=== PATIENT | female | born 1970 | race Two or more races ===

== ENCOUNTER 2021-06-05 10:04 | Outpatient (REF) | payer OTHER, SELFPAY ==
[2021-06-05 10:30] LABS: MANUAL DIFF FLAG NO
[2021-06-05 10:42] LABS: Basophils Percent Auto 0.2 % (0-2); Eosinophils Absolute Auto 0.1 X10*3/uL (0.0-0.4); Eosinophils Percent Auto 0.5 % (0-4); Hematocrit 42.8 % (37.0-47.0); Hemoglobin 13.2 g/dl (12.0-16.0); Imm Gran Abs Auto 0.04 X10*3/uL (0.00-0.03); Imm Gran Pct Auto 0.4 % (0.0-0.4); Lymphocytes Absolute Auto 4.8 X10*3/uL (1.2-4.9); Lymphocytes Percent Auto 46.5 % (20-40); Mean Corpuscular HGB Conc 30.8 g/dl (31.0-35.0); Mean Corpuscular Volume 84.3 fL (80.0-98.0); Mean Platelet Volume 10.4 fL (9.4-12.3); Monocytes Absolute Auto 0.6 X10*3/uL (0.1-1.2); Monocytes Percent Auto 5.5 % (2-11); Neutrophils Absolute Auto 4.8 x10*3/uL (2.0-8.3); Neutrophils Percent Auto 46.9 % (45-73); Platelet Count 248 X10*3/uL (160-400); Red Blood Count 5.08 X10*6/uL (4.20-5.50); Red Cell Distribution Width 15.9 % (11.0-16.0); White Blood Count 10.2 X10*3/uL (4.8-10.8)
[2021-06-05 11:06] LABS: Estimated Average Glucose 186 mg/dL; Hemoglobin A1c % 8.1 %
[2021-06-05 11:24] LABS: Alanine Aminotransferase 37 U/L (0-31); Albumin Level 4.4 g/dL (3.5-5.0); Alkaline Phosphatase 118 U/L (39-117); Anion Gap 15 (12-20); Aspartate Amino Transferase 11 U/L (5-31); Bilirubin Total 0.4 mg/dL (0.0-1.0); Blood Urea Nitrogen 23 mg/dL (9-16); Calcium 11.2 mg/dL (8.4-10.2); Carbon Dioxide 28 mmol/L (22-29); Chloride 100 mmol/L (96-108); Estimated Glomerular Filt Rate > 60; Glucose Fasting 109 mg/dL (60-99); Potassium 4.7 mmol/L (3.3-5.1); Sodium 138 mmol/L (135-145); Total Protein 7.8 g/dL (6.5-8.0)
[2021-06-05 12:34] LABS: Creatinine Urine 156.71 mg/dL
[2021-06-05 12:49] LABS: Microalbum/Creatinine Ratio Ur 326.7 ug/mg cr
== END 2021-06-05 10:05 | disposition home or self-care (01) ==
LOC: HO.LAB 10:04
PROVIDERS: PCP Nurse Practitioner Family; Visit Provider Nurse Practitioner Family
DX: E78.00 Pure hypercholesterolemia, unspecified (principal); E11.9 Type 2 diabetes mellitus without complications; I10 Essential (primary) hypertension
CPT/HCPCS: 36415; 80053; 82043; 83036; 85025

== ENCOUNTER 2021-06-19 12:40 | Outpatient (REF) | payer OTHER, SELFPAY ==
[2021-06-19 13:47] LABS: Calcium 11.6 mg/dL (8.4-10.2); Phosphorus 2.5 mg/dL (2.7-4.5)
[2021-06-19 14:13] LABS: TSH reflex Free T4 1.02 uIU/mL (0.32-4.0)
[2021-06-24 13:12] LABS: Vitamin D 25-OH, D2 4 ng/mL; Vitamin D 25-OH, D3 13 ng/mL; Vitamin D 25-OH, Total 17 ng/mL (30-100)
[2021-06-26 16:26] LABS: Parathyroid Hormone Related Pr 13 pg/mL (11-20)
== END 2021-06-19 12:41 | disposition home or self-care (01) ==
LOC: HO.LAB 12:40
PROVIDERS: PCP Nurse Practitioner Family; Visit Provider Nurse Practitioner Family
DX: E83.52 Hypercalcemia (principal)
CPT/HCPCS: 36415; 82306; 82310; 83519; 84100; 84443

== ENCOUNTER 2022-04-03 12:55 | Outpatient (REF) | payer OTHER, SELFPAY ==
--- NOTE | ~2022-04-03 | MM_ITS ---
EXAMINATION: MM SCREENING DIGITAL BREAST TOMOSYNTHESIS, BILATERAL CLINICAL INFORMATION: Screening. Asymptomatic. The lifetime risk of breast cancer based on the Tyrer-Cuzick Model is 11%. COMPARISON: Outside mammography: 05/29/2018, 05/21/2017 ([facility]). TECHNIQUE: Digital breast tomosynthesis is performed in both the craniocaudal and mediolateral oblique views along with computer-aided detection (CAD). Synthesized 2D images are generated from the tomosynthesis. FINDINGS: There are scattered areas of fibroglandular density (ACR BI-RADS breast composition Category b). There are no significant masses, abnormal calcifications, or other abnormalities. Parenchymal pattern is similar to prior outside exams. There is no developing density or architectural abnormality. The axilla and skin contours are unremarkable. No significant changes. MM/MM tomosynthesis screening BI IMPRESSION: No mammographic evidence of malignancy. ASSESSMENT: BI-RADS 1: Negative RECOMMENDATION: Routine annual mammography screening. This patient's information was entered into a reminder system with a target due date for their next mammogram.
== END 2022-04-03 12:56 | disposition home or self-care (01) ==
LOC: HO.MAMMO 12:55
PROVIDERS: PCP Nurse Practitioner Family; Visit Provider Nurse Practitioner Family
DX: Z12.31 Encounter for screening mammogram for malignant neoplasm of breast (principal)
CPT/HCPCS: 77063; 77067

== ENCOUNTER 2022-06-19 09:54 | Outpatient (REF) | payer OTHER, SELFPAY ==
[2022-06-19 10:48] LABS: Hematocrit 42.7 % (37.0-47.0); Hemoglobin 14.1 g/dl (12.0-16.0); Mean Corpuscular Volume 87.7 fL (80.0-98.0); Mean Platelet Volume 11.5 fL (9.4-12.3); Platelet Count 205 X10*3/uL (160-400); Red Blood Count 4.87 X10*6/uL (4.20-5.50); Red Cell Distribution Width 13.9 % (11.0-16.0); White Blood Count 5.9 X10*3/uL (4.8-10.8)
[2022-06-19 10:55] LABS: Estimated Average Glucose 189 mg/dL; Hemoglobin A1c % 8.2 %
[2022-06-19 11:29] LABS: Microalbum/Creatinine Ratio Ur 38.1 ug/mg cr
[2022-06-19 11:30] LABS: Alanine Aminotransferase 111 U/L (0-31); Albumin Level 4.1 g/dL (3.5-5.0); Alkaline Phosphatase 165 U/L (39-117); Anion Gap 14 (12-20); Aspartate Amino Transferase 85 U/L (5-31); Bilirubin Total 0.6 mg/dL (0.0-1.0); Blood Urea Nitrogen 12 mg/dL (9-16); Calcium 10.5 mg/dL (8.4-10.2); Carbon Dioxide 24 mmol/L (22-29); Chloride 106 mmol/L (96-108); Cholesterol 198 mg/dL; Estimated Glomerular Filt Rate > 60; Glucose Random 164 mg/dL (60-115); HDL Cholesterol 45 mg/dL; LDL Cholesterol Calculated 115 mg/dl; Magnesium 1.7 mg/dL (1.6-2.6); Phosphorus 3.1 mg/dL (2.7-4.5); Potassium 4.1 mmol/L (3.3-5.1); Sodium 140 mmol/L (135-145); Total Protein 7.1 g/dL (6.5-8.0); Triglycerides 190 mg/dL
[2022-06-19 11:49] LABS: Vitamin D 25-OH Total 31.6 ng/mL (>30)
[2022-06-19 12:04] LABS: Folate 15.9 ng/mL (> or = 4.0); Vitamin B12 550 pg/mL (200-900)
== END 2022-06-19 09:55 | disposition home or self-care (01) ==
LOC: HO.LAB 09:54
PROVIDERS: Nurse Practitioner Family; PCP Nurse Practitioner Family; Visit Provider Nurse Practitioner Family
DX: Z13.220 Encounter for screening for lipoid disorders (principal); E83.52 Hypercalcemia; E11.9 Type 2 diabetes mellitus without complications
CPT/HCPCS: 36415; 80053; 80061; 82043; 82306; 82607; 82746; 83036; 83735; 84100; 85027

== ENCOUNTER 2022-08-07 13:07 | Outpatient (REF) | payer OTHER, SELFPAY ==
--- NOTE | ~2022-08-07 | US_ITS ---
EXAMINATION: US ABDOMEN LIMITED CLINICAL INFORMATION: Abnormal levels of other serum enzymes. COMPARISON: None available. TECHNIQUE: Real-time imaging of the right upper quadrant abdominal viscera. FINDINGS: PANCREAS: Normal. The visualized pancreatic head and body are normal in appearance. The remainder of the pancreas is obscured from visualization by the overlying bowel gas. LIVER: The liver is normal in size. The liver contour is normal. There is diffuse increased liver parenchymal echogenicity, with pericholecystic sparing. No focal hepatic lesion. There is no intrahepatic biliary duct dilatation seen. GALLBLADDER: Contracted and otherwise unremarkable, without wall thickening, calculus or pericholecystic fluid noted. COMMON BILE DUCT: Normal in caliber measuring 0.5 cm in diameter. RIGHT KIDNEY: Normal. No hydronephrosis. No renal calculi or focal parenchymal lesions. The kidney measures 12.0 cm in maximum dimension. FREE FLUID: None. US/US abdomen limited IMPRESSION: 1. There is generalized increase in hepatic echotexture, consistent with fatty infiltration or hepatocellular disease. Please correlate clinically. Characteristic pericholecystic sparing favors fatty infiltration. No focal hepatic mass or intrahepatic biliary dilatation is seen. 2. Technically limited ultrasound examination of the pancreatic tail.
== END 2022-08-07 13:08 | disposition home or self-care (01) ==
LOC: HO.US 13:07
PROVIDERS: PCP Nurse Practitioner Family; Visit Provider Nurse Practitioner Family
DX: R74.8 Abnormal levels of other serum enzymes (principal)
CPT/HCPCS: 76705

== ENCOUNTER 2022-09-17 11:22 | Outpatient (REF) | payer OTHER, SELFPAY ==
[2022-09-17 12:39] LABS: Calcium 10.5 mg/dL (8.4-10.2)
[2022-09-18 04:45] LABS: HBS Num1 0.18 mIU/mL (0-7.99); HBc Num1 0.11 S/CO (0.00-0.79); HBsAGNum1 0.31 S/CO (0.00-0.99); Hepatitis A Antibody IgM 0.27 Index (0-0.79); Hepatitis B Core Antibody Nonreactive (Nonreactive); Hepatitis B Surface Antigen Negative (Negative); ~HepC Num1 0.13 S/CO (0.00-0.79); ~Hepatitis A Antibody IgM Nonreactive (Nonreactive); ~Hepatitis B Surface Antibody NONREACTIVE (Nonreactive); ~Hepatitis C Antibody Nonreactive (Nonreactive)
== END 2022-09-17 11:23 | disposition home or self-care (01) ==
LOC: HO.LAB 11:22
PROVIDERS: Nurse Practitioner Family; PCP Nurse Practitioner Family; Visit Provider Nurse Practitioner Family
DX: E83.52 Hypercalcemia (principal); R74.8 Abnormal levels of other serum enzymes
CPT/HCPCS: 36415; 82310; 86704; 86706; 86709; 86803; 87340

== ENCOUNTER 2022-12-20 13:17 | Outpatient (AMB) | payer OTHER, SELFPAY ==
[2022-12-20 13:37] VITALS: BP 152/98; PULSE 69; O2SAT 99; BMI 31.8
--- NOTE | 2022-12-20 13:37 | A.OFFPC_ITS ---
Vital Signs 12/20/22 13:37 12/20/22 14:43 Height 5 ft 2 in Weight 174 lb 0.8 oz BMI 31.8 BP 152/98 H 160/86 H Blood Pressure Location Lt brachial Lt brachial Position Sitting Sitting Pulse 69 Pulse Source Pulse Oximeter Temp Source Skin Pulse Oximetry (%) 99 Oxygen Delivery Method Room Air Intake Visit Reasons: DM, RA, HTN Intake Note: Patient is here to follow up on DM, RA, HTN. 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 Gas Appliance Installer Language: Chinese Allergies No Known Allergies Allergy (Verified 12/20/22 14:31) Medication List - Last Reconciled 12/20/22 by NASRA Carver acetaminophen 500 - 1,000 mg (1 - 2 x 500 mg) PO Q6H PRN adalimumab (Humira(CF) Pen) mg subcut Q2W amlodipine 10 mg PO DAILY blood sugar diagnostic (FreeStyle Lite Strips) four time a day cholecalciferol (vitamin D3) 50 mcg PO DAILY dulaglutide (Trulicity) 0.75 mg subcut QWEEK flash glucose scanning reader (WiztangoStyle Jaylon 14 Day Harvey) As directed flash glucose sensor (FreeStyle Jaylon 14 Day Sensor kit) four times a day folic acid 1 mg PO DAILY insulin aspart U-100 (Novolog FlexPen U-100 Insulin aspart) 15 units (0.15 mL) subcut TID insulin glargine 28 units subcut QPM ketoconazole 2% 1 appl topical QWEEK losartan 100 mg PO DAILY melatonin 3 mg PO BEDTIME PRN metformin 1,000 mg PO BID methotrexate sodium 10 mg PO QWEEK prednisone 1 mg PO DAILY Tobacco use date assessed: 12/20/22 Dental Screening Dental Screen Date: 12/20/22 Did you have a dental visit in the last 12 months?: No Did you have a dental problem in the last 6 months where you did not have access to dental care?: No HPI DM, RA, HTN HPI Details Patient is a 51-year-old female who presents today for a follow-up. Medical history significant for neuropathy of both feet, elevated liver enzymes, rheumatoid arthritis, polyarthralgia, hypertension, and diabetes type 2.? Diabetes is managed by endocrinology Dr. Ho at [facility].? Patient also sees rheumatology Dr. Krishna for rheumatoid arthritis and she is on prednisone, Humira, and methotrexate.? Patient is compliant with medications.?Patient denies shortness of breath or chest pain. In addition, patient reports right ankle rash for the past 1 week which is itching, denies changes in shampoo, body wash, new detergent, or new medications. Patient also reports ongoing dandruff and would like refill on ketoconazole shampoo. Patient was encouraged to complete her blood work. 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 [facility] Medical History Screening for hyperlipidemia COVID-19 virus infection (~01/2021) Surgical History History of colonoscopy History of tubal ligation History of hand surgery Social History Housing: House Alcohol intake: never Patient Tobacco Use Status: Never used Tobacco e-Cigarette/Vaping Use: Never Used Second Hand Smoke Exposure: No service: No Current occupational status: disabled Current occupational exposures/hazards: No Cognitive needs: Yes (wheelchair) Hearing needs: No Vision needs: No Questionnaire Thrive Questionnaire Date Thrive assessed: 06/20/22 AUDIT C Alcohol Use Questionnaire (AUDIT-C) 1. How often do you have a drink containing alcohol?: Never 3. How often do you have six or more drinks on one occasion?: Never Total Score: 0 Score Reviewed/Action Taken: No PRIMO-7 AMB Questionnaire PRIMO-7 Date PRIMO - 7 assessed: 06/20/22 Source: Developed by Drs. Germna Núñez, Jeaneth Grimes, Nato Mckenzie and colleagues, with an educational becky from [employer]. Review of Systems Const Denies body aches, Denies chills, Denies fever(s) and Denies headache(s) Eyes Denies change in vision ENT Denies dizziness, Denies otalgia, Denies headache(s), Denies nasal discharge, Denies sinus pain and Denies sore throat Card Denies chest pain, Denies edema, Denies lightheadedness and Denies dyspnea Resp Denies chest congestion, Denies cough and Denies dyspnea GI Denies abdominal pain, Denies constipation, Denies diarrhea, Denies nausea and Denies vomiting Denies dysuria Musc Denies myalgias, Reports arthralgias and Denies joint swelling Skin/Breast Details: Neuropathy of feet Denies lesions and Denies rash Neuro Denies dizziness and Denies headache(s) Physical exam (Primary Care) Vital Signs: Last Vital Signs Pulse 69 12/20/22 13:37 BP 160/86 H 12/20/22 14:43 Pulse Ox 99 12/20/22 13:37 Oxygen Delivery Method Room Air 12/20/22 13:37 BMI result Body Mass Index 31.8 Tobacco/Smoking Status: Tobacco use Status Tobacco use date assessed 12/20/22 12/20/22 13:40 Patient Tobacco Use Status Never used Tobacco 12/20/22 13:40 e-Cigarette/Vaping Use Never Used 12/20/22 13:40 Thrive Assessment: Date of Thrive Assessment Date Thrive assessed 06/20/22 12/20/22 13:40 Const General: cooperative and no acute distress Orientation/consciousness: patient oriented x3 HENMT Head: Yes normocephalic and Yes atraumatic Face and sinus: Yes sinuses nontender Mouth: oropharynx normal and moist mucous membranes Throat: Yes posterior oropharynx normal Eyes General: appearance normal, both eyes and all related structures Pupils: Equal, round and reactive pupils present EOM: EOMs intact bilaterally Neck Neck: Yes normal visual inspection, Yes full ROM and Yes no lymphadenopathy Thyroid: Thyroid normal Resp Effort & Inspection: normal respiratory effort and able to speak in complete sentences Auscultation: clear to auscultation bilaterally, no crackles, no rales, no rhonchi and no wheezes Cardio Rate: regular rate Rhythm: regular rhythm Heart sounds: S1 normal heart sound present, S2 normal heart sound present and no murmurs GI Auscultation: normal bowel sounds Skin Other: Right ankle with mild slightly erythematous dry rash noted, no signs of infection noted Neuro General: patient oriented x3 Cranial nerves: Yes Equal, round and reactive pupils present Extrem General: Yes full ROM and No edema Results AMB Hemoglobin A1c AMB Hemoglobin A1c 8.8 % Last Edit by LISY Zaragoza on 12/20/22 14:20 Results Reviewed Results Reviewed: Laboratory Last Values Hgb A1c (Clinic) 8.8 % (4.0-6.0) H 12/20/22 13:24 Assessment and Plan Assessment & Plan (1) Elevated liver enzymes: Code(s): R74.8 - Abnormal levels of other serum enzymes Plan: Patient was encouraged to complete her blood work (2) Rheumatoid arthritis: Code(s): M06.9 - Rheumatoid arthritis, unspecified Plan: Continue to follow-up with rheumatology Dr. Krishna as scheduled (3) Hypercalcemia: Code(s): E83.52 - Hypercalcemia Plan: Calcium 10.5 08/2022 Encouraged to complete blood work (4) Essential hypertension: Code(s): I10 - Essential (primary) hypertension Plan: Goal BP equal or less than 140/90, blood pressures elevated for the past couple times Low-sodium diet Amlodipine 10 mg daily Increase losartan to 100 mg daily Patient was encouraged to monitor blood pressures at home (5) Diabetes type 2, controlled: Code(s): E11.9 - Type 2 diabetes mellitus without complications Plan: A1c 8.8 today, goal less than 7 Microalbumin 53 05/2022 Continue to follow-up with endocrinology Dr. Ho at [facility] - next visit 12/2022 Will follow-up on ophthalmology referral for diabetic eye exam Continue NovoLog, glargine, Trulicity and metformin Reinforced low-carbohydrate diet (6) Obesity (BMI 30-39.9): Code(s): E66.9 - Obesity, unspecified Plan: Healthy food choices and exercise as tolerated (7) Rash: Code(s): R21 - Rash and other nonspecific skin eruption Plan: Right ankle with mild slightly erythematous dry rash noted, no signs of infection noted, ? Eczema Start triamcinolone cream daily for 14 days to rash, follow-up if no improvement after finishing treatment (8) Dandruff: Code(s): L21.0 - Seborrhea capitis Plan: Refill for ketoconazole shampoo Orders: Orders AMB Hemoglobin A1c 12/20/22 E11.9 - Type 2 diabetes mellitus without complications Medications: New losartan 100 mg PO DAILY 90 tabs 1RF I10 - Essential (primary) hypertension triamcinolone acetonide 0.1% 1 appl topical DAILY 14 days 15 grams 0RF R21 - Rash and other nonspecific skin eruption Refilled ketoconazole 2% 1 appl topical QWEEK 120 mL 0RF Discontinued losartan Discontinued Reason: Doctor's Order 50 mg PO DAILY 90 tabs 1RF Coding Level of Care Code Est Pt Level 4 (18482) Diagnoses Elevated liver enzymes R74.8 Rheumatoid arthritis M06.9 Hypercalcemia E83.52 Essential hypertension I10 Diabetes type 2, controlled E11.9 Obesity (BMI 30-39.9) E66.9 Rash R21 Dandruff L21.0
[2022-12-20 14:43] VITALS: BP 160/86
== END 2022-12-20 14:55 | disposition home or self-care (01) ==
PROVIDERS: PCP Nurse Practitioner Family; Visit Provider Nurse Practitioner Family
DX: E11.9 Type 2 diabetes mellitus without complications (principal)
CPT/HCPCS: 83036; 99214

== ENCOUNTER 2023-04-09 13:04 | Outpatient (REF) | payer OTHER, SELFPAY | END 2023-04-09 13:05 | disposition home or self-care (01) | LOC: HO.MAMMO 13:04 | PROVIDERS: PCP Nurse Practitioner Family; Visit Provider Nurse Practitioner Family | DX: Z12.31 Encounter for screening mammogram for malignant neoplasm of breast (principal) | CPT/HCPCS: 77063; 77067 ==

== ENCOUNTER → 2023-04-09 13:15 | Outpatient (BNV) | payer OTHER, SELFPAY | PROVIDERS: PCP Nurse Practitioner Family; Visit Provider Radiology Diagnostic Radiology | DX: Z12.31 Encounter for screening mammogram for malignant neoplasm of breast (principal) | CPT/HCPCS: 77063; 77067 ==

== ENCOUNTER 2023-04-15 14:19 | Outpatient (AMB) | payer OTHER, SELFPAY ==
--- NOTE | 2023-04-15 14:21 | A.OFFPC_ITS ---
Vital Signs 04/15/23 14:23 Height 5 ft 2 in Weight 168 lb 4 oz BMI 30.8 BP 130/70 Blood Pressure Location Lt brachial Position Sitting Pulse 78 Pulse Source Pulse Oximeter Pulse Oximetry (%) 95 Oxygen Delivery Method Room Air Intake Visit Reasons: med review Intake Note: Patient is here to follow up on med review. Complaint of dry itchy scalp and dandruff, and left toe pain. 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 Water Control Station Engineer Language: Insulation Blanket Maker Name: Graciela ([id number]) Information Interpreted: non-clinical & clinical Engineering Production Liaison: Not Required per policy Accompanied by: Self / Same As Patient Allergies No Known Allergies Allergy (Verified 04/15/23 16:26) Medication List - Last Reconciled 04/15/23 by Van Kim MD acetaminophen 500 - 1,000 mg (1 - 2 x 500 mg) PO Q6H PRN adalimumab (Humira(CF) Pen) mg subcut Q2W amlodipine 10 mg PO DAILY blood sugar diagnostic (FreeStyle Lite Strips) four time a day cholecalciferol (vitamin D3) 50 mcg PO DAILY dulaglutide (Trulicity) 0.75 mg subcut QWEEK flash glucose scanning reader (FreeStyle Jaylon 14 Day Combes) As directed flash glucose sensor (FreeStyle Jaylon 14 Day Sensor kit) four times a day folic acid 1 mg PO DAILY insulin aspart U-100 (Novolog FlexPen U-100 Insulin aspart) 15 units (0.15 mL) subcut TID insulin glargine 28 units subcut QPM losartan 100 mg PO DAILY melatonin 3 mg PO BEDTIME PRN metformin 1,000 mg PO BID methotrexate sodium 10 mg PO QWEEK prednisone 1 mg PO DAILY selenium sulfide 2.25% 1 appl topical BEDTIME 7 days triamcinolone acetonide 0.1% 1 appl topical DAILY 14 days Tobacco use date assessed: 04/15/23 Dental Screening Dental Screen Date: 04/15/23 Did you have a dental visit in the last 12 months?: No Did you have a dental problem in the last 6 months where you did not have access to dental care?: No Was dental information given to patient?: Patient has dentist HPI med review HPI Details 53 year old female presents to the offic e to discuss her medical issues. I am assuming her care as her provider has left the practice. market garden worker service via the ipad was used. Patient has type 2 DM and is insulin requiring. All care is from Diabetic Endocrinology including adjusting her insulin. Last A1c is 8.8. Patient has Rheumatoid Arthritis and is on disease modifying agents. She would like a prescription of folic acid. History of seborrheic dermatitis . Ketoconazole shampoo has not helped. Uses a cane to ambulate. [facility] Medical History (Updated 04/15/23 @ 16:38 by Van Kim MD) Rheumatoid arthritis Seborrheic dermatitis Essential hypertension Screening for hyperlipidemia COVID-19 virus infection (~01/2021) Surgical History History of colonoscopy History of tubal ligation History of hand surgery Social History Housing: House Alcohol intake: never Patient Tobacco Use Status: Never used Tobacco e-Cigarette/Vaping Use: Never Used Second Hand Smoke Exposure: No service: No Current occupational status: disabled Current occupational exposures/hazards: No Cognitive needs: Yes (wheelchair, cane) Hearing needs: No Vision needs: No Questionnaire PHQ-9 Over the last 2 weeks, how often have you been bothered by any of the following problems? 1. Little interest or pleasure in doing things: not at all 2. Feeling down, depressed, or hopeless: not at all 3. Trouble falling or staying asleep, or sleeping too much: not at all 4. Feeling tired or having little energy: not at all 5. Poor appetite or overeating: not at all 6. Feeling bad about yourself - or that you are a failure or have let yourself or your family down: not at all 7. Trouble concentrating on things, such as reading the newspaper or watching television: not at all 8. Moving or speaking so slowly that other people could have noticed. Or the opposite - being so fidgety or restless that you have been moving around a lot more than usual: not at all 9. Thoughts that you would be better off or of hurting yourself in some way: not at all Total score: 0 Depression Screening Interpretation: Negative Depression Screening Done: Yes Source: Developed by Drs. German LJeaneth Oropeza Kurt Kroenke and colleagues, with an educational becky from [employer]. Thrive Questionnaire Date Thrive assessed: 04/15/23 I am a: Patient What is your living situation today?: I have a steady place to live Within the past 12 months, did the food you bought not last and you didn't have the money to get more?: Never true Within the past 12 months, did you worry whether your food would run out before you got money to buy more?: Never true Do you have trouble paying for medicines?: No Do you have trouble getting transportation to medical appointments?: No Do you have trouble paying your heating and electricity bill?: No Do you have trouble taking care of your child, family member or friend?: No Do you have trouble with day-to-day activities such as bathing, preparing meals, shopping, managing finances, etc.?: No Are you currently unemployed and looking for a job?: No Are you interested in more education?: No Currently or been in a relationship where the following occur: no concerns reported THRIVE Score: 0 AUDIT C Alcohol Use Questionnaire (AUDIT-C) 1. How often do you have a drink containing alcohol?: Never Total Score: 0 PRIMO-7 AMB Questionnaire PRIMO-7 Date PRIMO - 7 assessed: 04/15/23 Feeling nervous, anxious, or on edge: 0 = Not at all Not being able to stop or control worryin = Not at all Worrying too much about different things: 0 = Not at all Trouble relaxin = Not at all Being so restless that it is hard to sit still: 0 = Not at all Becoming easily annoyed or irritable: 0 = Not at all Feeling afraid as if something awful might happen: 0 = Not at all Total PRIMO-7 score (0-4 normal; 5-9 mild; 10-14 moderate; 15-21 severe): 0 Source: Developed by Jeaneth Finley Kurt Kroenke and colleagues, with an educational becky from [employer]. Physical exam (Primary Care) Vital Signs: Last Vital Signs Pulse 78 04/15/23 14:23 BP 130/70 04/15/23 14:23 Pulse Ox 95 04/15/23 14:23 Oxygen Delivery Method Room Air 04/15/23 14:23 BMI result Body Mass Index 30.8 Tobacco/Smoking Status: Tobacco use Status Tobacco use date assessed 04/15/23 04/15/23 14:26 Patient Tobacco Use Status Never used Tobacco 04/15/23 14:26 e-Cigarette/Vaping Use Never Used 04/15/23 14:26 PHQ-9: PHQ-9 Score PHQ-9: Total score 0 04/15/23 15:08 Depression Screening Interpretation: Negative Thrive Assessment: Date of Thrive Assessment Date Thrive assessed 04/15/23 04/15/23 14:26 Currently or been in a relationship where the following occur: no concerns reported Const General: cooperative and healthy appearing Nutritional Appearance: well nourished Orientation/consciousness: patient oriented x3 Limitations: no limitations HENMT Head: Yes normal to inspection Eyes General: appearance normal, both eyes and all related structures Neck Neck: Yes normal visual inspection Chest Chest palpation & inspection: normal palpation of entire chest wall Resp Effort & Inspection: normal respiratory effort Neuro General: patient oriented x3 Assessment and Plan Assessment & Plan (1) Rheumatoid arthritis: Code(s): M06.9 - Rheumatoid arthritis, unspecified Plan: Sx are well controlled. Continue medications at same dosage. (2) Seborrheic dermatitis: Code(s): L21.9 - Seborrheic dermatitis, unspecified Plan: Selenium sulfide shampoo ordered. Ketoconazole discontinued. (3) Diabetes type 2, controlled: Code(s): E11.9 - Type 2 diabetes mellitus without complications Plan: A1c is poorly controlled. Patient wishes to be seen and managed at [facility] End[facility]. Pt aware of poor sugar control/ (4) Essential hypertension: Code(s): I10 - Essential (primary) hypertension Plan: BP is under control. Continue medications at same dosage. Amlodipine refilled. Medications: New folic acid 1 mg PO DAILY 90 tabs 1RF selenium sulfide 2.25% massage into affected area; leave on for 10 mins ; rinse off thoroughly 1 appl topical BEDTIME 180 mL 0RF 7 days Refilled amlodipine 10 mg PO DAILY 90 tabs 3RF I10 - Essential (primary) hypertension Discontinued ketoconazole 2% Discontinued Reason: Doctor's Order 1 appl topical QWEEK 120 mL 3RF Coding Level of Care Code Est Pt Level 4 (04377) Diagnoses Rheumatoid arthritis M06.9 Seborrheic dermatitis L21.9 Diabetes type 2, controlled E11.9 Essential hypertension I10
[2023-04-15 14:23] VITALS: BP 130/70; PULSE 78; O2SAT 95; BMI 30.8
== END 2023-04-15 15:02 | disposition home or self-care (01) ==
PROVIDERS: PCP Internal Medicine; Visit Provider Internal Medicine
DX: M06.9 Rheumatoid arthritis, unspecified (principal); L21.9 Seborrheic dermatitis, unspecified; E11.9 Type 2 diabetes mellitus without complications; I10 Essential (primary) hypertension
CPT/HCPCS: 99214

== ENCOUNTER 2023-07-22 09:17 | Outpatient (REF) | payer OTHER, SELFPAY ==
[2023-07-22 10:06] LABS: Alanine Aminotransferase 18 U/L (0-31); Albumin Level 3.9 g/dL (3.5-5.0); Alkaline Phosphatase 118 U/L (39-117); Anion Gap 12 (12-20); Aspartate Amino Transferase 14 U/L (5-31); Bilirubin Total 0.4 mg/dL (0.0-1.0); Blood Urea Nitrogen 16 mg/dL (9-16); Calcium 10.6 mg/dL (8.4-10.2); Carbon Dioxide 25 mmol/L (22-29); Chloride 106 mmol/L (96-108); Cholesterol 164 mg/dL (<200); Estimated Glomerular Filt Rate > 60; Glucose Fasting 223 mg/dL (60-99); HDL Cholesterol 41 mg/dL (>40); LDL Cholesterol Calculated 102 mg/dL (<100); Sodium 139 mmol/L (135-145); Triglycerides 109 mg/dL (<150)
== END 2023-07-22 09:18 | disposition home or self-care (01) ==
LOC: HO.LAB 09:17
PROVIDERS: Visit Provider Nurse Practitioner Family
DX: E83.52 Hypercalcemia (principal); Z13.220 Encounter for screening for lipoid disorders
CPT/HCPCS: 36415; 80053; 80061

== ENCOUNTER 2023-07-24 13:44 | Outpatient (AMB) | payer OTHER, SELFPAY ==
[2023-07-24 13:46] VITALS: BP 136/82; PULSE 74; O2SAT 97
--- NOTE | 2023-07-24 13:46 | A.OFFPC_ITS ---
Vital Signs 07/24/23 13:46 Height 5 ft 2 in Weight 164 lb BMI 30.0 BP 136/82 Blood Pressure Location Lt brachial Position Sitting Pulse 74 Pulse Source Pulse Oximeter Pulse Oximetry (%) 97 Oxygen Delivery Method Room Air Intake Visit Reasons: 3mth f/u Intake Note: Patient is here to follow up on 3 months Survey Superintendent Required: Yes Survey Superintendent Language: Syriac Allergies No Known Allergies Allergy (Verified 07/24/23 14:45) Medication List - Last Reconciled 07/24/23 by Van Kim MD acetaminophen 500 - 1,000 mg (1 - 2 x 500 mg) PO Q6H PRN adalimumab (Humira(CF) Pen) mg subcut Q2W amlodipine 10 mg PO DAILY blood sugar diagnostic (FreeStyle Lite Strips) four time a day cholecalciferol (vitamin D3) 50 mcg PO DAILY dulaglutide (Trulicity) 0.75 mg subcut QWEEK flash glucose scanning reader (Access PointStyle Jaylon 14 Day [place]) As directed flash glucose sensor (FreeStyle Jaylon 14 Day Sensor kit) four times a day folic acid 1 mg PO DAILY insulin aspart U-100 (Novolog FlexPen U-100 Insulin aspart) 15 units (0.15 mL) subcut TID insulin glargine 28 units subcut QPM losartan 100 mg PO DAILY melatonin 3 mg PO BEDTIME PRN metformin 1,000 mg PO BID methotrexate sodium 10 mg PO QWEEK prednisone 1 mg PO DAILY Tobacco use date assessed: 07/24/23 Dental Screening Dental Screen Date: 04/15/23 HPI 3mth f/u HPI Details 53-year-old female presents to the offic e to discuss her chronic medical conditions. Patient comes to the office with a swelling on the dorsum of the right hand and a swollen right ankle. History is obtained through an commercial loan specialist we are the iPad. Patient reports that she is having pain and discomfort in that area. Does not recall any fall or injury. Was seen earlier in the emergency room and put on doxycycline. The course is complete. Her blood sugars are under better control right now. She gets her care from [facility] endocrinology. Patient continues to have a rash in her scalp. The selenium sulfide solution that I had prescribed in the last office visit is not working. [facility] Medical History (Updated 04/15/23 @ 16:38 by Van Kim MD) Rheumatoid arthritis Seborrheic dermatitis Essential hypertension Screening for hyperlipidemia COVID-19 virus infection (~01/2021) Surgical History History of colonoscopy History of tubal ligation History of hand surgery Social History Housing: House Alcohol intake: never Patient Tobacco Use Status: Never used Tobacco e-Cigarette/Vaping Use: Never Used Second Hand Smoke Exposure: No service: No Current occupational status: disabled Current occupational exposures/hazards: No Cognitive needs: Yes (wheelchair, cane) Hearing needs: No Vision needs: No Questionnaire Thrive Questionnaire Date Thrive assessed: 04/15/23 AUDIT C Alcohol Use Questionnaire (AUDIT-C) 1. How often do you have a drink containing alcohol?: Never Total Score: 0 PRIMO-7 AMB Questionnaire PRIMO-7 Date PRIMO - 7 assessed: 04/15/23 Source: Developed by Drs. German Núñez, Jeaneth Grimes, Nato Mckenzie and colleagues, with an educational becky from [employer]. Physical exam (Primary Care) Vital Signs: Last Vital Signs Pulse 74 07/24/23 13:46 BP 136/82 07/24/23 13:46 Pulse Ox 97 07/24/23 13:46 Oxygen Delivery Method Room Air 07/24/23 13:46 Care Plan Goal for BP management: Blood pressure is in range. BMI result Body Mass Index 30.0 Tobacco/Smoking Status: Tobacco use Status Tobacco use date assessed 07/24/23 07/24/23 13:47 Patient Tobacco Use Status Never used Tobacco 07/24/23 13:47 e-Cigarette/Vaping Use Never Used 07/24/23 13:47 Thrive Assessment: Date of Thrive Assessment Date Thrive assessed 04/15/23 07/24/23 13:47 Const General: cooperative and healthy appearing Nutritional Appearance: well nourished Orientation/consciousness: patient oriented x3 Limitations: no limitations HENMT Other: Scalp: Extensive seborrheic dermatitis with scaling lesions. Head: Yes normal to inspection Eyes General: appearance normal, both eyes and all related structures Neck Neck: Yes normal visual inspection Chest Chest palpation & inspection: normal palpation of entire chest wall Resp Effort & Inspection: normal respiratory effort Neuro General: patient oriented x3 Extrem Other: Right hand: Swelling on the dorsum of the hand, overlying bruising. Minimal tenderness. Full range of motion on the digits. Right ankle: Medial epicondyle is swollen. Full flexion and extension with discomfort. Results AMB Hemoglobin A1c AMB Hemoglobin A1c 7.2 % Last Edit by LISY Zaragoza on 07/24/23 14:00 Results Reviewed Results Reviewed: Laboratory Last Values Hgb A1c (Clinic) 7.2 % (4.0-6.0) H 07/24/23 12:52 Assessment and Plan Assessment & Plan (1) Rheumatoid arthritis: Code(s): M06.9 - Rheumatoid arthritis, unspecified Plan: X-ray of the hand and ankle has been ordered. Meloxicam for 14 days ordered. (2) Seborrheic dermatitis: Code(s): L21.9 - Seborrheic dermatitis, unspecified Plan: Dermatology consult will be requested. Orders: Orders AMB Hemoglobin A1c Today E11.9 - Type 2 diabetes mellitus without complications XR hand RT min 3V Today M06.9 - Rheumatoid arthritis, unspecified XR ankle RT min 3V Today M06.9 - Rheumatoid arthritis, unspecified, S93.401A - Sprain of unspecified ligament of right ankle, initial encounter Referrals Dermatology Referral L21.9 - Seborrheic dermatitis, unspecified Medications: Discontinued triamcinolone acetonide 0.1% Discontinued Reason: Doctor's Order 1 appl topical DAILY 15 grams 0RF 14 days R21 - Rash and other nonspecific skin eruption selenium sulfide 2.25% massage into affected area; leave on for 10 mins ; rinse off thoroughly Discontinued Reason: Doctor's Order 1 appl topical BEDTIME 180 mL 0RF 7 days Coding Level of Care Code Est Pt Level 4 (36849) Diagnoses Rheumatoid arthritis M06.9 Seborrheic dermatitis L21.9
== END 2023-07-24 14:41 | disposition home or self-care (01) ==
PROVIDERS: PCP Internal Medicine; Visit Provider Internal Medicine
DX: M06.9 Rheumatoid arthritis, unspecified (principal); L21.9 Seborrheic dermatitis, unspecified; E11.9 Type 2 diabetes mellitus without complications
CPT/HCPCS: 83036; 99214

== ENCOUNTER 2023-07-24 14:51 | Outpatient (REF) | payer OTHER, SELFPAY ==
--- NOTE | ~2023-07-24 | XR_ITS ---
EXAMINATION: XR HAND, RIGHT CLINICAL INFORMATION: Rheumatoid arthritis unspecified COMPARISON: None available. TECHNIQUE: PA, lateral, and oblique views of the right hand. FINDINGS: Moderate degenerative changes in the first carpometacarpal joint with joint space narrowing and hypertrophic change. The bones are diffusely demineralized. Mild degenerative changes with hypertrophic change and joint space narrowing in scattered IP joints. XR/XR hand RT min 3V IMPRESSION: 1. Moderate degenerative changes first carpometacarpal joint. 2. Mild degenerative changes scattered IP joints. 3. No displaced fracture. Recommend follow up imaging in 10-14 days if fracture is suspected.
--- NOTE | ~2023-07-24 | XR_ITS ---
EXAMINATION: XR ANKLE, RIGHT CLINICAL INFORMATION: Sprain of ligament of right ankle, initial encounter. COMPARISON: None available. TECHNIQUE: AP, lateral, and mortise views of the right ankle. FINDINGS: Soft tissue swelling most prominent at the medial aspect of the ankle. Ankle joint effusion. Tiny dorsal calcaneal spur. Ankle mortise is maintained. No displaced fracture is appreciated. XR/XR ankle RT min 3V IMPRESSION: Soft tissue swelling, particularly along the medial aspect of the ankle. Joint effusion. No displaced fracture. Recommend follow up imaging in 10-14 days if fracture is suspected.
== END 2023-07-24 14:52 | disposition home or self-care (01) ==
LOC: HO.XRAY 14:51
PROVIDERS: PCP Internal Medicine; Visit Provider Internal Medicine
DX: M06.9 Rheumatoid arthritis, unspecified (principal); S93.401A Sprain of unspecified ligament of right ankle, initial encounter
CPT/HCPCS: 73130; 73610

== ENCOUNTER 2023-10-14 13:24 | Outpatient (AMB) | payer OTHER, SELFPAY ==
--- NOTE | 2023-10-14 13:28 | MHC.PC.OV ---
Vital Signs 10/14/23 13:30 Height 5 ft 2 in Weight 158 lb 4 oz BMI 28.9 BP 140/72 H Blood Pressure Location Lt brachial Position Sitting Pulse 69 Pulse Source Pulse Oximeter Pulse Oximetry (%) 97 Oxygen Delivery Method Room Air Intake Visit Reasons: [facility] 09/03 then to another hospital Intake Note: Patient is here for hospital discharge follow up. Patient was discharged from [facility] on 09/04/23. Lens Engraver Required: Yes Lens Engraver Language: Gas Specialist Name: Vesta ([id number]) Information Interpreted: non-clinical & clinical Reviewer Sales: Not Required per policy Accompanied by: Self / Same As Patient Allergies losartan Allergy (Intermediate, Verified 10/14/23 13:40) increase potassium Tobacco use date assessed: 10/14/23 Dental Screening Dental Screen Date: 04/15/23 HPI [facility] Ed 09/03 then to another hospital HPI Details 53-year-old female presents to the office after recent hospital discharge. Patient has been having marked discomfort in the right hand shoulder and elbows for the past few weeks. She had been to [place] where she was noncompliant with her rheumatoid arthritis medications. Subsequently her arthritis has flared up. She has received steroids, injectable steroids, opiates for the same. Patient is now taking the methotrexate and prednisone. However she has not restarted the Humira injection. There are various reasons for this. Continues to have pain in the right hand especially at the MCP joint. Patient is also having fluctuating blood sugars due to her use of prednisone. She is not taking the insulin as per the regimen prescribed here. According to the patient she is only taking Novolin. [facility] Medical History (Updated 04/15/23 @ 16:38 by Van Kim MD) Rheumatoid arthritis Seborrheic dermatitis Essential hypertension Screening for hyperlipidemia COVID-19 virus infection (~01/2021) Surgical History History of colonoscopy History of tubal ligation History of hand surgery Social History Housing: House Alcohol intake: never Patient Tobacco Use Status: Never used Tobacco e-Cigarette/Vaping Use: Never Used Second Hand Smoke Exposure: No service: No Current occupational status: disabled Current occupational exposures/hazards: No Cognitive needs: Yes (wheelchair, cane) Hearing needs: No Vision needs: No Questionnaire Thrive Questionnaire Date Thrive assessed: 04/15/23 PRIMO-7 AMB Questionnaire PRIMO-7 Date PRIMO - 7 assessed: 04/15/23 Source: Developed by Drs. German Núñez, Jeaneth Grimes, Nato Mckenzie and colleagues, with an educational becky from [employer]. Physical exam (Primary Care) Vital Signs: Last Vital Signs Pulse 69 10/14/23 13:30 BP 140/72 H 10/14/23 13:30 Pulse Ox 97 10/14/23 13:30 Oxygen Delivery Method Room Air 10/14/23 13:30 BMI result Body Mass Index 28.9 Tobacco/Smoking Status: Tobacco use Status Tobacco use date assessed 10/14/23 10/14/23 13:38 Patient Tobacco Use Status Never used Tobacco 10/14/23 13:29 e-Cigarette/Vaping Use Never Used 10/14/23 13:29 Thrive Assessment: Date of Thrive Assessment Date Thrive assessed 04/15/23 10/14/23 13:29 Const General: cooperative and healthy appearing Nutritional Appearance: well nourished Orientation/consciousness: patient oriented x3 Limitations: no limitations HENMT Head: Yes normal to inspection Eyes General: appearance normal, both eyes and all related structures Neck Neck: Yes normal visual inspection Chest Chest palpation & inspection: normal palpation of entire chest wall Resp Effort & Inspection: normal respiratory effort Neuro General: patient oriented x3 Extrem Other: Right hand: Swelling on the MCP joint. Tender to touch. Pain on flexion of the 4th digit. Assessment and Plan Assessment & Plan (1) Rheumatoid arthritis: Code(s): M06.9 - Rheumatoid arthritis, unspecified Plan: Patient currently his having a flare up on her rheumatoid arthritis. Her disease is controlled with Humira, prednisone and methotrexate. However she has not been taking the Humira for a variety of reasons. Silver Spray Worker note was reviewed in detail. There is a plan to change her to Cimizia. Meloxicam has been called in. (2) Essential hypertension: Code(s): I10 - Essential (primary) hypertension Plan: Blood pressure is stable. Continue medications at same dosage. (3) Diabetes type 2, controlled: Code(s): E11.9 - Type 2 diabetes mellitus without complications Plan: Her blood sugars are also fluctuating widely. Due to the increased and variable doses of prednisone, the sugars have been markedly elevated. She is not taking the insulin as per the protocol written here. Patient now agrees to follow the insulin directions from this office. I have instructed her to bring the insulin back for me to show her how to use and the dosage to use. Patient has promised to come back tomorrow. She will take the basal injection at night and the short-acting insulin 3 times a day. Medications: New insulin glargine 28 units (0.28 mL) subcut QPM 10 mL 1RF Refilled insulin aspart U-100 (Novolog FlexPen U-100 Insulin aspart) 15 units (0.15 mL) subcut TID 15 mL 1RF meloxicam 15 mg PO DAILY 14 tabs 0RF Coding Level of Care Code Est Pt Level 4 (36433) Complex EM visit Add On G2211 Diagnoses Rheumatoid arthritis M06.9 Essential hypertension I10 Diabetes type 2, controlled E11.9
[2023-10-14 13:30] VITALS: BP 140/72; PULSE 69; O2SAT 97; BMI 28.9
== END 2023-10-14 14:15 | disposition home or self-care (01) ==
PROVIDERS: PCP Internal Medicine; Visit Provider Internal Medicine
DX: E11.9 Type 2 diabetes mellitus without complications (principal); M06.9 Rheumatoid arthritis, unspecified; I10 Essential (primary) hypertension
CPT/HCPCS: 99214; G2211

== ENCOUNTER 2023-11-13 13:48 | Outpatient (AMB) | payer OTHER, SELFPAY ==
[2023-11-13 13:50] VITALS: BP 142/90; PULSE 63; O2SAT 97
--- NOTE | 2023-11-13 13:50 | A.OFFPC_ITS ---
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 Operator Required: No Accompanied by: Self / Same As Patient Allergies losartan Allergy (Intermediate, Verified 11/13/23 13:50) increase potassium Medication List - Last Reconciled 11/13/23 by Van Kim MD acetaminophen 500 - 1,000 mg (1 - 2 x 500 mg) PO Q6H PRN adalimumab (Humira(CF) Pen) mg subcut Q2W amlodipine 10 mg PO DAILY blood sugar diagnostic (FreeStyle Lite Strips) four time a day cholecalciferol (vitamin D3) 50 mcg PO DAILY clobetasol 0.05% 1 appl topical BEDTIME dulaglutide (Trulicity) 0.75 mg subcut QWEEK flash glucose scanning reader ([employer]Style Jaylon 14 Day [place]) As directed flash glucose sensor (FreeStyle Jaylon 14 Day Sensor kit) four times a day folic acid 1 mg PO DAILY insulin aspart U-100 (Novolog FlexPen U-100 Insulin aspart) 15 units (0.15 mL) subcut TID insulin glargine 28 units (0.28 mL) subcut QPM melatonin 3 mg PO BEDTIME PRN meloxicam 15 mg PO DAILY metformin 1,000 mg PO BID methotrexate sodium 10 mg PO QWEEK pen needle, diabetic (BD Ultra-Fine Mini Pen Needle) As directed prednisone 5 mg PO DAILY Tobacco use date assessed: 11/13/23 Dental Screening Dental Screen Date: 11/13/23 Did you have a dental visit in the last 12 months?: Yes Did you have a dental problem in the last 6 months where you did not have access to dental care?: No Was dental information given to patient?: Patient has dentist HPI 3 Month F/U HPI Details 53-year-old female presents to the offic e to discuss her chronic medical condition. An mover via the iPad was utilized. Patient reports that she is having intermittent spasms in her right hand and leg. Humira has been discontinued and she is awaiting to start a new disease modifying agent for rheumatoid arthritis. She has to order picker/assembler the prescriptions from the pharmacy and go to the arthritis provider. She uses a cane to ambulate. Patient's blood sugars are fluctuating and continue to be high. Today she i nforms me that she has a specialist at [facility] for endocrinology. [facility] Medical History Rheumatoid arthritis Seborrheic dermatitis Essential hypertension Screening for hyperlipidemia COVID-19 virus infection (~01/2021) Surgical History History of colonoscopy History of tubal ligation History of hand surgery Social History Housing: House Alcohol intake: never Patient Tobacco Use Status: Never used Tobacco e-Cigarette/Vaping Use: Never Used Second Hand Smoke Exposure: No service: No Current occupational status: disabled Current occupational exposures/hazards: No Cognitive needs: Yes (wheelchair, cane) Hearing needs: No Vision needs: No Questionnaire PHQ-9 Over the last 2 weeks, how often have you been bothered by any of the following problems? 1. Little interest or pleasure in doing things: not at all 2. Feeling down, depressed, or hopeless: not at all 3. Trouble falling or staying asleep, or sleeping too much: not at all 4. Feeling tired or having little energy: not at all 5. Poor appetite or overeating: not at all 6. Feeling bad about yourself - or that you are a failure or have let yourself or your family down: not at all 7. Trouble concentrating on things, such as reading the newspaper or watching television: not at all 8. Moving or speaking so slowly that other people could have noticed. Or the opposite - being so fidgety or restless that you have been moving around a lot more than usual: not at all 9. Thoughts that you would be better off or of hurting yourself in some way: not at all Total score: 0 Depression Screening Interpretation: Negative Depression Screening Done: Yes Source: Developed by Drs. German Núñez, Jeaneth Grimes, Nato Mckenzie and colleagues, with an educational becky from [employer]. Thrive Questionnaire Date Thrive assessed: 11/13/23 I am a: Patient What is your living situation today?: I have a steady place to live Within the past 12 months, did the food you bought not last and you didn't have the money to get more?: Never true Within the past 12 months, did you worry whether your food would run out before you got money to buy more?: Never true Do you have trouble paying for medicines?: No Do you have trouble getting transportation to medical appointments?: No Do you have trouble paying your heating and electricity bill?: No Do you have trouble taking care of your child, family member or friend?: No Do you have trouble with day-to-day activities such as bathing, preparing meals, shopping, managing finances, etc.?: No Are you currently unemployed and looking for a job?: No Are you interested in more education?: No Please select the resources that you would like help with: None Currently or been in a relationship where the following occur: No concerns reported THRIVE Score: 0 AUDIT C Alcohol Use Questionnaire (AUDIT-C) 1. How often do you have a drink containing alcohol?: Never Total Score: 0 PRIMO-7 AMB Questionnaire PRIMO-7 Date PRIMO - 7 assessed: 11/13/23 Feeling nervous, anxious, or on edge: 0 = Not at all Not being able to stop or control worryin = Not at all Worrying too much about different things: 0 = Not at all Trouble relaxin = Not at all Being so restless that it is hard to sit still: 0 = Not at all Becoming easily annoyed or irritable: 0 = Not at all Feeling afraid as if something awful might happen: 0 = Not at all Total PRIMO-7 score (0-4 normal; 5-9 mild; 10-14 moderate; 15-21 severe): 0 Source: Developed by Drs. German Núñez, Jeaneth Grimes, Nato Mckenzie and colleagues, with an educational becky from [employer]. Physical exam (Primary Care) Vital Signs: Last Vital Signs Pulse 63 11/13/23 13:50 BP 142/90 H 11/13/23 13:50 Pulse Ox 97 11/13/23 13:50 Oxygen Delivery Method Room Air 11/13/23 13:50 BMI result Body Mass Index 30.0 Tobacco/Smoking Status: Tobacco use Status Tobacco use date assessed 11/13/23 11/13/23 13:55 Patient Tobacco Use Status Never used Tobacco 11/13/23 13:55 e-Cigarette/Vaping Use Never Used 11/13/23 13:55 PHQ-9: PHQ-9 Score PHQ-9: Total score 0 11/13/23 14:06 Depression Screening Interpretation: Negative Thrive Assessment: Date of Thrive Assessment Date Thrive assessed 11/13/23 11/13/23 13:55 Currently or been in a relationship where the following occur: No concerns reported Const General: cooperative and healthy appearing Nutritional Appearance: well nourished Orientation/consciousness: patient oriented x3 Limitations: no limitations HENMT Head: Yes normal to inspection Eyes General: appearance normal, both eyes and all related structures Neck Neck: Yes normal visual inspection Chest Chest palpation & inspection: normal palpation of entire chest wall Resp Effort & Inspection: normal respiratory effort Neuro General: patient oriented x3 Results AMB Hemoglobin A1c AMB Hemoglobin A1c 10.4 % Last Edit by LISY Rouse on 11/13/23 14:07 Results Reviewed Results Reviewed: Laboratory Last Values Hgb A1c (Clinic) 10.4 % (4.0-6.0) H 11/13/23 14:06 Assessment and Plan Assessment & Plan (1) Rheumatoid arthritis: Code(s): M06.9 - Rheumatoid arthritis, unspecified Plan: Patient was advised to order picker/assembler the new agent and try the medication soon. Hopefully her symptoms that she is experiencing currently will resolve. (2) Diabetes type 2, controlled: Code(s): E11.9 - Type 2 diabetes mellitus without complications Plan: Significant time was spent on sorting this confusion. I spent 20 minutes discussing this situation. In the last office visit, I did not realize that patient has an assurance manager at [facility] who is managing her diabetes. They were giving her Novolin 70/30 and trying to adjust the blood sugars. I had provided Lantus and Novolin separately. It is not very clear that which of the insulin was the patient taking. Her blood sugars continue to be very high as her A1c today is greater than 10. I informed the patient to discontinue the Lantus and Novolin ordered by me. She should only follow-up with her assurance manager at [facility] and follow the instructions. I advised her to call her provider at [facility] to inform him of the A1c results and have the insulin dosage adjusted. Her sugars are high and patient understands now the confusion. She has an appointment with her provider at [facility] next week. Orders: Orders AMB Hemoglobin A1c Today Z13.9 - Encounter for screening, unspecified Coding Level of Care Code Est Pt Level 4 (08069) Complex EM visit Add On G2211 Diagnoses Rheumatoid arthritis M06.9 Diabetes type 2, controlled E11.9
== END 2023-11-13 14:47 | disposition home or self-care (01) ==
PROVIDERS: PCP Internal Medicine; Visit Provider Internal Medicine
DX: M06.9 Rheumatoid arthritis, unspecified (principal); E11.9 Type 2 diabetes mellitus without complications
CPT/HCPCS: 83036; 99214; G2211

== ENCOUNTER → 2023-12-09 15:16 | Outpatient (BNVA) | payer OTHER, SELFPAY | PROVIDERS: PCP Internal Medicine ==

== ENCOUNTER → 2023-12-15 13:31 | Outpatient (BNVA) | payer OTHER, SELFPAY | PROVIDERS: PCP Internal Medicine ==

== ENCOUNTER 2024-02-12 13:52 | Outpatient (AMB) | payer OTHER, SELFPAY ==
[2024-02-12 13:56] VITALS: BP 130/70; PULSE 74; O2SAT 97; BMI 28.9
--- NOTE | 2024-02-12 13:56 | A.OFFPC_ITS ---
Vital Signs 02/12/24 13:56 Height 5 ft 2 in Weight 158 lb BMI 28.9 BP 130/70 Blood Pressure Location Lt brachial Position Sitting Pulse 74 Pulse Source Pulse Oximeter Pulse Oximetry (%) 97 Oxygen Delivery Method Room Air Intake Visit Reasons: 3 Month F/U Intake Note: Patient is here to follow up on DM, RA, HTN. Pt decline flu shot today. Complaint of swelling of both hands due to RA and makes difficult to anything. Mechanical Energy Engineer Required: Yes Mechanical Energy Engineer Language: Marble Machine Operator Name: Joshua ([id number]) Information Interpreted: non-clinical & clinical Sheep Herder: Not Required per policy Accompanied by: Self / Same As Patient Allergies losartan Allergy (Intermediate, Verified 02/19/24 15:43) increase potassium Medication List - Last Reconciled 02/19/24 by Van Kim MD acetaminophen 500 - 1,000 mg (1 - 2 x 500 mg) PO Q6H PRN adalimumab (Humira(CF) Pen) mg subcut Q2W amlodipine 10 mg PO DAILY blood sugar diagnostic (FreeStyle Lite Strips) four time a day cholecalciferol (vitamin D3) 50 mcg PO DAILY clobetasol 0.05% 1 appl topical BEDTIME dulaglutide (Trulicity) 0.75 mg subcut QWEEK flash glucose scanning reader (FreeStyle Jaylon 14 Day [place]) As directed flash glucose sensor (FreeStyle Jaylon 14 Day Sensor kit) four times a day folic acid 1 mg PO DAILY insulin glargine (Lantus Solostar U-100 Insulin) 20 units subcut QPM insulin NPH and regular human 100 unit/mL (70-30) (Novolin 70-30 FlexPen U-100 Insulin) 44 units subcut QAM melatonin 3 mg PO BEDTIME PRN meloxicam 15 mg PO DAILY metformin 1,000 mg PO BID methotrexate sodium 10 mg PO QWEEK pen needle, diabetic (BD Ultra-Fine Mini Pen Needle) As directed prednisone 5 mg PO DAILY Tobacco use date assessed: 02/12/24 Dental Screening Dental Screen Date: 11/13/23 HPI 3 Month F/U HPI Details 53-year-old female presents to the offic e to discuss her chronic medical conditions. Patient only speaks Lao, comes alone and I used an time study technologist through the iPad. Patient reports ongoing pain in her wrists. She has been seeing the product analyst who has been giving her a weekly injection. Her product analyst is in [facility] and I do not have access to his office notes. Patient is requesting prescription of morphine or opiates for pain relief She is also seeing an property appraiser at [facility]. She is following the guidelines for insulin through them. [facility] Medical History Rheumatoid arthritis Seborrheic dermatitis Essential hypertension Screening for hyperlipidemia COVID-19 virus infection (~01/2021) Surgical History History of colonoscopy History of tubal ligation History of hand surgery Social History Housing: House Alcohol intake: never Patient Tobacco Use Status: Never used Tobacco e-Cigarette/Vaping Use: Never Used Second Hand Smoke Exposure: No service: No Current occupational status: disabled Current occupational exposures/hazards: No Cognitive needs: Yes (wheelchair, cane) Hearing needs: No Vision needs: No Questionnaire Thrive Questionnaire Date Thrive assessed: 11/13/23 PRIMO-7 AMB Questionnaire PRIMO-7 Date PRIMO - 7 assessed: 11/13/23 Source: Developed by Drs. German Núñez, Jeaneth Grimes, Nato Mckenzie and colleagues, with an educational becky from [employer]. Physical exam (Primary Care) Vital Signs: Last Vital Signs Pulse 74 02/12/24 13:56 BP 130/70 02/12/24 13:56 Pulse Ox 97 02/12/24 13:56 Oxygen Delivery Method Room Air 02/12/24 13:56 BMI result Body Mass Index 28.9 Tobacco/Smoking Status: Tobacco use Status Tobacco use date assessed 02/12/24 02/12/24 14:12 Patient Tobacco Use Status Never used Tobacco 02/12/24 14:12 e-Cigarette/Vaping Use Never Used 02/12/24 14:12 Thrive Assessment: Date of Thrive Assessment Date Thrive assessed 11/13/23 02/12/24 14:12 Const General: cooperative and healthy appearing Nutritional Appearance: well nourished Orientation/consciousness: patient oriented x3 Limitations: no limitations HENMT Head: Yes normal to inspection Eyes General: appearance normal, both eyes and all related structures Neck Neck: Yes normal visual inspection Chest Chest palpation & inspection: normal palpation of entire chest wall Resp Effort & Inspection: normal respiratory effort Neuro General: patient oriented x3 Extrem Other: Symmetrical swelling in the proximal IP joints across the fingers. Pain on flexion of these joints. Results AMB Hemoglobin A1c AMB Hemoglobin A1c 12.5 % Last Edit by LISY Dela Cruz on 02/12/24 14:1 4 Results Reviewed Results Reviewed: Laboratory Last Values Hgb A1c (Clinic) 12.5 % (4.0-6.0) H 02/12/24 13:55 Coding Level of Care Code Est Pt Level 4 (22310) Complex EM visit Add On G2211 Diagnoses Rheumatoid arthritis M06.9 Diabetes type 2, controlled E11.9 Assessment & Plan Assessment & Plan (1) Rheumatoid arthritis: Code(s): M06.9 - Rheumatoid arthritis, unspecified Category: Medical Plan: Barriers to care: Patient not understanding the normality of her disease. She sees a product analyst and I do not have access to the records. She does not bring her medication list and I am not sure which biological she is on. I was not willing to start any opiate prescriptions without the use information. Despite using the time study technologist, patient is very reluctant to share the information or name of her product analyst. (2) Diabetes type 2, controlled: Code(s): E11.9 - Type 2 diabetes mellitus without complications Category: Medical Plan: Again, patient sees an property appraiser not associated with [facility]. She reports that she sees an property appraiser at [facility]. Her A1c is greater than 10 indicating poor control. She is not willing to change her insulin dosage. She only wants medications for pain which I have declined. Orders: Orders AMB Hemoglobin A1c 02/12/24 E11.9 - Type 2 diabetes mellitus without complications Medications: Refilled amlodipine 10 mg PO DAILY 90 tabs 3RF I10 - Essential (primary) hypertension
== END 2024-02-12 15:50 | disposition home or self-care (01) ==
PROVIDERS: PCP Internal Medicine; Visit Provider Internal Medicine
DX: M06.9 Rheumatoid arthritis, unspecified (principal); E11.9 Type 2 diabetes mellitus without complications

== ENCOUNTER → 2024-02-12 13:52 | Outpatient (BNVA) | payer OTHER, SELFPAY | PROVIDERS: PCP Internal Medicine; Visit Provider Internal Medicine | DX: M06.9 Rheumatoid arthritis, unspecified (principal); E11.9 Type 2 diabetes mellitus without complications | CPT/HCPCS: 83036; 99212 ==

== ENCOUNTER 2024-03-25 14:28 | Outpatient (AMB) | payer OTHER, SELFPAY ==
--- NOTE | 2024-03-25 14:32 | MHC.PC.OV ---
Vital Signs 03/25/24 14:35 Height 5 ft 2 in Weight 153 lb 4 oz BMI 28.0 BP 130/80 Blood Pressure Location Lt brachial Position Sitting Pulse 85 Pulse Source Pulse Oximeter Pulse Oximetry (%) 97 Oxygen Delivery Method Room Air Intake Visit Reasons: referral request Intake Note: Patient is here to follow up on Referral relay dispatcher for her hand and referral to dermatology for itch scalp . Medical Information Officer Required: Yes Medical Information Officer Language: Meat Cutter Name: Mk ([id number]) Information Interpreted: non-clinical & clinical Touch Up Edger: Not Required per policy Accompanied by: Self / Same As Patient Allergies losartan Allergy (Intermediate, Verified 03/25/24 14:35) increase potassium Tobacco use date assessed: 03/25/24 Dental Screening Dental Screen Date: 03/25/24 Did you have a dental visit in the last 12 months?: Yes Did you have a dental problem in the last 6 months where you did not have access to dental care?: No Was dental information given to patient?: Patient has dentist [facility] Medical History Rheumatoid arthritis Seborrheic dermatitis Essential hypertension Screening for hyperlipidemia COVID-19 virus infection (~01/2021) Surgical History History of colonoscopy History of tubal ligation History of hand surgery Social History Housing: House Alcohol intake: never Patient Tobacco Use Status: Never used Tobacco e-Cigarette/Vaping Use: Never Used Second Hand Smoke Exposure: No service: No Current occupational status: disabled Current occupational exposures/hazards: No Cognitive needs: Yes (wheelchair, cane) Hearing needs: No Vision needs: No Questionnaire PHQ-9 Over the last 2 weeks, how often have you been bothered by any of the following problems? 1. Little interest or pleasure in doing things: not at all 2. Feeling down, depressed, or hopeless: not at all 3. Trouble falling or staying asleep, or sleeping too much: not at all 4. Feeling tired or having little energy: not at all 5. Poor appetite or overeating: not at all 6. Feeling bad about yourself - or that you are a failure or have let yourself or your family down: not at all 7. Trouble concentrating on things, such as reading the newspaper or watching television: not at all 8. Moving or speaking so slowly that other people could have noticed. Or the opposite - being so fidgety or restless that you have been moving around a lot more than usual: not at all 9. Thoughts that you would be better off or of hurting yourself in some way: not at all Total score: 0 Depression Screening Interpretation: Negative Depression Screening Done: Yes Source: Developed by Drs. German Núñez, Jeaneth Grimes, Nato Mckenzie and colleagues, with an educational becky from [employer]. Thrive Questionnaire Date Thrive assessed: 03/25/24 I am a: Patient What is your living situation today?: I have a steady place to live Within the past 12 months, did the food you bought not last and you didn't have the money to get more?: Never true Within the past 12 months, did you worry whether your food would run out before you got money to buy more?: Never true Do you have trouble paying for medicines?: No Do you have trouble getting transportation to medical appointments?: No Do you have trouble paying your heating and electricity bill?: No Do you have trouble taking care of your child, family member or friend?: No Do you have trouble with day-to-day activities such as bathing, preparing meals, shopping, managing finances, etc.?: No Are you currently unemployed and looking for a job?: No Are you interested in more education?: No Please select the resources that you would like help with: None Currently or been in a relationship where the following occur: I choose not to answer THRIVE Score: 0 AUDIT C Alcohol Use Questionnaire (AUDIT-C) 1. How often do you have a drink containing alcohol?: Never Total Score: 0 PRIMO-7 AMB Questionnaire PRIMO-7 Date PRIMO - 7 assessed: 03/25/24 Feeling nervous, anxious, or on edge: 0 = Not at all Not being able to stop or control worryin = Not at all Worrying too much about different things: 0 = Not at all Trouble relaxin = Not at all Being so restless that it is hard to sit still: 0 = Not at all Becoming easily annoyed or irritable: 0 = Not at all Feeling afraid as if something awful might happen: 0 = Not at all Total PRIMO-7 score (0-4 normal; 5-9 mild; 10-14 moderate; 15-21 severe): 0 Source: Developed by Drs. German Núñez, Jeaneth Grimes, Nato Mckenzie and colleagues, with an educational becky from [employer]. Physical exam (Primary Care) Vital Signs: Last Vital Signs Pulse 85 03/25/24 14:35 BP 130/80 03/25/24 14:35 Pulse Ox 97 03/25/24 14:35 Oxygen Delivery Method Room Air 03/25/24 14:35 BMI result Body Mass Index 28.0 Tobacco/Smoking Status: Tobacco use Status Tobacco use date assessed 03/25/24 03/25/24 14:40 Patient Tobacco Use Status Never used Tobacco 03/25/24 14:40 e-Cigarette/Vaping Use Never Used 03/25/24 14:40 PHQ-9: PHQ-9 Score PHQ-9: Total score 0 03/25/24 14:40 Depression Screening Interpretation: Negative Thrive Assessment: Date of Thrive Assessment Date Thrive assessed 03/25/24 03/25/24 14:40 Currently or been in a relationship where the following occur: I choose not to answer Coding Level of Care Code Est Pt Level 4 (80985) Complex EM visit Add On G2211 Diagnoses Seborrheic dermatitis L21.9 Assessment & Plan Assessment & Plan (1) Seborrheic dermatitis: Code(s): L21.9 - Seborrheic dermatitis, unspecified Category: Medical Plan History of Present Illness The patient is a 53-year-old female presenting with scalp dermatitis evaluation and management, diabetes management, and requests for rheumatology and dermatology referrals. The patient reports experiencing a scalp lesion that is very itchy, leading to scratching, the release of dandruff, and eventual bleeding. The scalp issue has persisted despite prior management. Regarding her diabetes, the patient notes that her blood glucose level was 195 mg/dL yesterday, and her hemoglobin A1c is greater than 10%, indicating poor glycemic control. She is currently on insulin therapy with 44 units of unspecified insulin taken in the morning, along with metformin at 500 mg twice daily. She mentions adjustments in her diabetic medications without further specification. Patient sees a relay dispatcher who is prescribing disease modifying agents including biologicals. She would like pain medications. Her joints continue to be sore and inflamed. Additionally, the patient's thyroid levels are reportedly abnormal which prompted consultation for more detailed studies. Social History Review of Systems - Dermatology: Reports itchy scalp lesion with dandruff and bleeding. - Endocrinology: Reports elevated blood sugar levels; glycemic control reported as poor. - Musculoskeletal: Reports hand pain suspected to be associated with rheumatoid arthritis. Physical Exam General: Appearance normal, both eyes and all related structures Nutritional Appearance: Well nourished Orientation/consciousness: Patient oriented x3 Limitations: No limitations Head: Scalp lesion present, very itchy Neck: Normal visual inspection Chest: Normal palpation of entire chest wall Respiratory: Normal respiratory effort Neurology: Patient oriented x3 Results - Labs: Blood glucose level of 195 mg/dL; hemoglobin A1c >10%. Plan - Continue insulin therapy for type 2 diabetes with adjustments as needed to achieve better glycemic control. Emphasize monitoring and reporting of blood sugar levels. - Prescribe medicated shampoo and other topicals as needed for scalp dermatitis management. - Provide a dermatology referral for further management and evaluation of scalp lesion and dermal issues. - Provide a rheumatology referral to assess hand pain due to rheumatoid arthritis. - Manage essential hypertension with current medications adjusting as necessary based on thorough evaluation. - Evaluate thyroid function tests with the patient insurance clerk for abnormal thyroid levels. Patient was informed and verbally consented to the use of an ambient scribe for clinic note documentation during this visit. Discussion Notes I explained to the patient the importance of managing her diabetes effectively, emphasizing better glycemic control through consistent monitoring and adjustments to her medications as deemed necessary by her patient insurance clerk. I discussed the management of scalp dermatitis with a specific medicated shampoo prescription and reiterated the significance of the dermatology referral. Regarding her hand pain, I recommended a rheumatology consult for further evaluation of suspected rheumatoid arthritis. I informed her of the diagnostics and importance of thyroid function evaluation in conjunction with her patient insurance clerk, given the reported abnormal thyroid levels. Patient Instructions - Take insulin as prescribed and monitor blood sugar levels regularly. - Use the prescribed shampoo for scalp dermatitis as directed. - Attend dermatology and rheumatology appointments for further assessment. - Follow up with your patient insurance clerk regarding diabetic and thyroid management. - Continue taking your antihypertensive medication as prescribed. Medications: New ketoconazole 2% 1 appl topical 2XW 120 mL 1RF
[2024-03-25 14:35] VITALS: BP 130/80; PULSE 85; O2SAT 97; BMI 28.0
== END 2024-03-25 17:15 | disposition home or self-care (01) ==
PROVIDERS: PCP Internal Medicine; Visit Provider Internal Medicine
DX: L21.9 Seborrheic dermatitis, unspecified (principal)

== ENCOUNTER → 2024-03-25 14:28 | Outpatient (BNVA) | payer OTHER, SELFPAY | PROVIDERS: PCP Internal Medicine; Visit Provider Internal Medicine | DX: L21.9 Seborrheic dermatitis, unspecified (principal) | CPT/HCPCS: 96127; 99212 ==

== ENCOUNTER 2024-04-21 12:33 | Outpatient (REF) | payer OTHER, SELFPAY | END 2024-04-21 12:34 | disposition home or self-care (01) | LOC: HO.MAMMO 12:33 | PROVIDERS: PCP Internal Medicine; Visit Provider Internal Medicine | DX: Z12.31 Encounter for screening mammogram for malignant neoplasm of breast (principal) | CPT/HCPCS: 77063; 77067 ==

== ENCOUNTER → 2024-04-21 13:00 | Outpatient (BNV) | payer OTHER, SELFPAY | PROVIDERS: PCP Internal Medicine; Visit Provider Internal Medicine | DX: Z12.31 Encounter for screening mammogram for malignant neoplasm of breast (principal) | CPT/HCPCS: 77063; 77067 ==

== ENCOUNTER 2025-01-05 14:02 | Outpatient (AMB) | payer OTHER, SELFPAY ==
--- NOTE | 2025-01-05 14:13 | A.OFFPC_ITS ---
Vital Signs 01/05/25 14:15 Height 5 ft 2 in Weight 158 lb 6 oz BMI 29.0 BP 114/74 Blood Pressure Location Lt brachial Position Sitting Pulse 74 Pulse Source Pulse Oximeter Temp 96.9 F Temp Source Temporal Artery Scan Pulse Oximetry (%) 97 Oxygen Delivery Method Room Air Intake Visit Reasons: discuss paperwork Intake Note: Patient is here to follow up on Discuss paperwork. Associate Technician Required: Yes Associate Technician Language: Practice Billing Associate Name: Muna ([id number]) Information Interpreted: non-clinical & clinical Regional Facilities Manager: Not Required per policy Accompanied by: Self / Same As Patient Allergies losartan Allergy (Intermediate, Verified 01/05/25 14:14) increase potassium Tobacco use date assessed: 01/05/25 Dental Screening Dental Screen Date: 03/25/24 [facility] Medical History Rheumatoid arthritis Seborrheic dermatitis Essential hypertension Screening for hyperlipidemia COVID-19 virus infection (~01/2021) Surgical History History of colonoscopy History of tubal ligation History of hand surgery Social History Housing: House Alcohol intake: never Patient Tobacco Use Status: Never used Tobacco e-Cigarette/Vaping Use: Never Used Second Hand Smoke Exposure: No service: No Current occupational status: disabled Current occupational exposures/hazards: No Cognitive needs: Yes (wheelchair, cane) Hearing needs: No Vision needs: No Questionnaire PHQ-9 Over the last 2 weeks, how often have you been bothered by any of the following problems? 1. Little interest or pleasure in doing things: nearly every day 2. Feeling down, depressed, or hopeless: not at all 3. Trouble falling or staying asleep, or sleeping too much: several days 4. Feeling tired or having little energy: nearly every day 5. Poor appetite or overeating: nearly every day 6. Feeling bad about yourself - or that you are a failure or have let yourself or your family down: several days 7. Trouble concentrating on things, such as reading the newspaper or watching television: not at all 8. Moving or speaking so slowly that other people could have noticed. Or the opposite - being so fidgety or restless that you have been moving around a lot more than usual: not at all 9. Thoughts that you would be better off or of hurting yourself in some way: not at all Total score: 11 Depression Screening Interpretation: Positive Depression Screening Done: Yes Source: Developed by Drs. German Núñez, Jeaneth Grimes, Nato Mckenzie and colleagues, with an educational becky from [employer]. Thrive Questionnaire Date Thrive assessed: 03/25/24 I am a: Patient What is your living situation today?: I have a steady place to live Within the past 12 months, did the food you bought not last and you didn't have the money to get more?: Never true Within the past 12 months, did you worry whether your food would run out before you got money to buy more?: Never true Do you have trouble paying for medicines?: No Do you have trouble getting transportation to medical appointments?: No Do you have trouble paying your heating and electricity bill?: No Do you have trouble taking care of your child, family member or friend?: No Do you have trouble with day-to-day activities such as bathing, preparing meals, shopping, managing finances, etc.?: No Are you currently unemployed and looking for a job?: Yes Are you interested in more education?: No Please select the resources that you would like help with: None Currently or been in a relationship where the following occur: No concerns reported THRIVE Score: 0 AUDIT C Alcohol Use Questionnaire (AUDIT-C) 1. How often do you have a drink containing alcohol?: Never Total Score: 0 PRIMO-7 AMB Questionnaire PRIMO-7 Date PRIMO - 7 assessed: 03/25/24 Feeling nervous, anxious, or on edge: 0 = Not at all Not being able to stop or control worryin = Several days Worrying too much about different things: 1 = Several days Trouble relaxin = Several days Being so restless that it is hard to sit still: 1 = Several days Becoming easily annoyed or irritable: 1 = Several days Feeling afraid as if something awful might happen: 1 = Several days Total PRIMO-7 score (0-4 normal; 5-9 mild; 10-14 moderate; 15-21 severe): 6 Source: Developed by Drs. German Núñez, Jeaneth Grimes, Nato Mckenzie and colleagues, with an educational becky from [employer]. Physical exam (Primary Care) Vital Signs: Last Vital Signs Temp 96.9 F 01/05/25 14:15 Pulse 74 01/05/25 14:15 BP 114/74 01/05/25 14:15 Pulse Ox 97 01/05/25 14:15 Oxygen Delivery Method Room Air 01/05/25 14:15 BMI result Body Mass Index 29.0 Tobacco/Smoking Status: Tobacco use Status Tobacco use date assessed 01/05/25 01/05/25 14:22 Patient Tobacco Use Status Never used Tobacco 01/05/25 14:22 e-Cigarette/Vaping Use Never Used 01/05/25 14:22 PHQ-9: PHQ-9 Score PHQ-9: Total score 11 01/05/25 14:22 Depression Screening Interpretation: Positive Thrive Assessment: Date of Thrive Assessment Date Thrive assessed 03/25/24 01/05/25 14:22 Currently or been in a relationship where the following occur: No concerns reported Results AMB Hemoglobin A1c AMB Hemoglobin A1c 6.8 % Last Edit by LISY Dela Cruz on 01/05/25 14:36 Results Reviewed Results Reviewed: Laboratory Last Values Hgb A1c (Clinic) 6.8 % (4.0-6.0) H 01/05/25 14:12 Coding Level of Care Code Est Pt Level 4 (12720) Complex EM visit Add On G2211 Diagnoses Diabetes type 2, controlled E11.9 Assessment & Plan Assessment & Plan (1) Diabetes type 2, controlled: Code(s): E11.9 - Type 2 diabetes mellitus without complications Category: Medical Plan: History of Present Illness - The patient is a 54-year-old female presenting with a follow-up visit to manage her chronic conditions. - Osteoporosis: Receives injections every three months and is advised to avoid falls due to fracture risk. - Arthritis: Managed by window trimmer with regular follow-ups every three months. - Diabetes Mellitus: Sees Fingerprint Clerk and On Trulicity, Metformin, and Tresiba for glycemic control, with regular blood work every three months. - Psoriasis: Requires a specific shampoo for management. - Hypertension: On medication for blood pressure control. - The patient is not currently working due to her health conditions and requires paperwork for state assistance. Social History - The patient is not currently employed due to her health conditions and is seeking state assistance. Review of Systems - Musculoskeletal: Reports arthritis, advised to avoid falls due to ost eoporosis. - Endocrine: Reports diabetes mellitus, managed with medication. - Dermatological: Reports psoriasis, requires specific shampoo. Physical Exam General: Cooperative and healthy appearing Nutritional Appearance: Well nourished Orientation/consciousness: Patient oriented x3 Limitations: No limitations Head: Normal to inspection General: Appearance normal, both eyes and all related structures Neck: Normal visual inspection Chest: Normal palpation of entire chest wall Respiratory: N ormal respiratory effort Neurology: Patient oriented x3, advised to avoid falls due to osteoporosis and arthritis. Right and left hands: joint deformity at MCP and IP joints. Results Plan - Continue osteoporosis management with regular injections and fall precautions. - Maintain arthritis management with regular follow-ups. - Continue diabetes management with Trulicity, Metformin, and Tresiba, and monitor blood glucose levels regularly. - Prescribe specific shampoo for psoriasis management. - Refill hypertension medication as needed. - Complete and sign paperwork for state assistance due to patient's inability to work. Discussion Notes I discussed with the patient the continuation of her current management plan for osteoporosis, arthritis, diabetes, and hypertension. We reviewed the importance of medication adherence and regular follow-ups. I also addressed her concerns about psoriasis and provided a prescription for the shampoo. Additionally, I completed the necessary paperwork for her state assistance program. Patient Instructions - Continue taking all prescribed medications as directed. - Use the prescribed shampoo for psoriasis as needed. - Avoid falls to prevent fractures due to osteoporosis. - Follow up with regular appointments for ongoing management of chronic conditions. - Contact the state assistance program if there are any issues with the paperwork. Orders: Orders AMB Hemoglobin A1c Today E11.9 - Type 2 diabetes mellitus without complications Medications: Refilled ketoconazole 2% 1 appl topical 2XW 120 mL 1RF amlodipine 10 mg PO DAILY 90 tabs 1RF I10 - Essential (primary) hypertension folic acid 1 mg PO DAILY 90 tabs 1RF
[2025-01-05 14:15] VITALS: BP 114/74; PULSE 74; TEMP 36.1; O2SAT 97; BMI 29.0
--- OUTSIDE RECORDS SUMMARY | 2025-01-05 17:50 | XMS_ITS | Clinical Summary ---
Author Organization Last Size [facility] ity Address [address] [place] [address] Care Team Providers Care Digital Analytics Manager Name Role Phone Veronica Montana MD Primary Care Provider Nikos norris Surgical History Surgery Date Site/Laterality Comments TUBAL LIGATION PROCEDURE: HISTORICAL TUBAL LIGATION Medical History Medical History Date Comments Essential hypertension 05/05/2017 DX:Essent ial hypertension Dandruff 10/02/2017 DX:Dandruff Family History Medical History Relation Name Comments Breast cancer Aunt 1 Breast cancer Aunt 2 Hypertension Brother Coronary artery disease Father Diabetes Mother Relation Name Status Comments Aunt 1 Aunt 2 Brother Alive Father Alive Mother Alive Social History Tobacco Use Types Packs/Day Years Used Date Smoking Tobacco: Former Cigarettes Q uit: 05/05/2014 Smokeless Tobacco: Never Alcohol Use Standard Drinks/Week Comments No 0 (1 standard drink = 0.6 oz pur e alcohol) Comments Unknown Sex and Gender Information Value Date Recorded Sex Assigned at Not on file Legal Sex Female 6:48 PM EST Gender Identity Not on file Sexual Orientation Not on file Obstetrics History Last Filed Vital Signs Vital Sign Reading Time Taken Comments Blood Pressure 177/98 06/26/2023 11:20 AM EDT Pulse 72 06/26/2023 11:20 AM EDT Temperature - - Respiratory Rate - - Oxygen Saturation - - Inhaled Oxygen Concentration - - Weight - - Height - - Body Mass Index - - Plan of Treatment Health Maintenance Due Date Last Done Comments Colorectal Cancer Screening: Colonoscopy 1970 Hepatitis B Vaccines (1 of 3 - 19+ 3-dose series) 1989 Cervical Cancer Screening: P ap Smear 1991 Pneumococcal Vaccine: 50+ Ye ars (1 of 1 - PCV) 2020 Zoster Vaccines (1 of 2) 2020 Breast Cancer Screening 05/29/2020 05/29/2018 Cholesterol Screening (Lipid Panel) 02/23/2022 HIV Screening 02/23/2022 Hepatitis C Screening 02/23/2022 Social Influencers of Health Screening 02/23/2022 Hypertension/CHF/CAD Annual BMP Blood Test 02/28/2022 Depression Screening 03/24/2024 COVID-19 Vaccine (1 - 2023-2 5 season) 2024 Influenza Vaccine (#1) 2024 DTaP,Tdap,and Td Vaccines (2 - Td or Tdap) 05/05/2027 05/05/2017 RSV Immunization Adult Patie nts (1 - 1-dose 75+ series) 2045 HIB Vaccines Aged Out No longer eligi ble based on patient's age to complete this topic HPV Vaccines Aged Out No longer eligi ble based on patient's age to complete this topic Hepatitis A Vaccines Aged Out No long er eligible based on patient's age to complete this topic IPV Vaccines Aged Out No longer eligi ble based on patient's age to complete this topic MMR Vaccines Aged Out No longer eligi ble based on patient's age to complete this topic Meningococcal ACWY Vaccine Aged Out N o longer eligible based on patient's age to complete this topic Meningococcal B Vaccine Aged Out No l onger eligible based on patient's age to complete this topic RSV Immunization Patients Un ángel 20 months Aged Out No longer eligible b ased on patient's age to complete this topic Varicella Vaccines Aged Out No longer eligible based on patient's age to complete this topic Procedures Procedure Name Priority Date/Time Associated Diagnosis Comments [facility] SCREENING DIGITAL Routine 05/29/2018 3:51 PM EST Encounter for screening mammogram for malignant neoplasm of breast from Last 3 Months or Most Recently Relevant to Health Maintenance Results * HOME SCREENING DIGITAL (05/29/2018 3:51 PM EST) Anatomical Region Laterality Modality Mammography 05/29/2018 1:38 PM EST Narrative 05/29/2018 3:51 PM EST [facility] Diagnostic Imaging Department [address] [place] [address] Patient: LOIS MANRIQUE Chely Mcdaniels/Age/Sex: 1970 - 48 - F Unit#: [id number] Location/Status: SPDIMAM/REG CLI Mnemonic/Ordering Site: [facility] Ordering Physician: VERONICA MONTANA MD Home Screening Digital - 05/29/18 - 142 History: Bilateral breast cancer screening. Technique: Digital mammography. Conventional CC and MLO projections with tomosynthesis MLO views and computer aided detection. Comparison: [facility] 05/21/2017. Findings: Breast tissue consists of fatty and fibroglandular elements (category b density) bilaterally. There is no suspicious group of microcalcifications, mass, architectural distortion or suspicious change in breast tissue density. Impression: No evidence of malignancy. BIRADS category 1; negative study, 3341F 58214, [id number] Note: Patient information entered into a reminder system with a target due date for the next mammogram: CPT II 7025F Dictating Physician: GANESH PIPER MD Electronically Signed by: GANESH PIPER MD Dic Date/Time: 05/29/181550 Sign date/Time: 05/29/181550 Procedure Note Ganesh Piper MD - 03/13/2022 [facility] Diagnostic Imaging Department [address] [place] [address] Patient: SHAKA MANRIQUEYELITZA Andersen./Age/Sex: 1970 - 48 -F Unit#: [id number] Location/Status: SPDIMAM/REG CLI Mnemonic/Ordering Site: [facility] Ordering Physician: VERONICA MONTANA MD Home Screening Digital - 05/29/18 - 142 History: Bilateral breast cancer screening. Technique: Digital mammography. Conventional CC and MLO projectionswith tomosynthesis MLO views and computer aided detection. Comparison: [facility] 05/21/2017. Findings: Breast tissue consists of fatty and fibroglandular elements (category b density) bilaterally. There is no suspicious group of microcalcifications, mass, architectural distortion or suspicious changein breast tissue density. Impression: No evidence of malignancy. BIRADS category 1; negative study, 3341F 42236, [id number] Note: Patient information entered into a reminder system with a target duedate for the next mammogram: CPT II 7025F Dictating Physician: GANESH PIPER MD Electronically Signed by: GANESH PIPER MD Dic Date/Time: 05/29/181550 Sign date/Time: 05/29/181550 us Veronica Montana MD IMG BI PROCEDURES Final Resu lt from Last 3 Months or Most Recently Relevant to Health Maintenance Care Teams Digital Analytics Manager Relationship Specialty Start Date End Date Veronica Montana MD PCP - General Internal Medicine 05/01/17
== END 2025-01-05 15:06 | disposition home or self-care (01) ==
LOC: HO.HMCH 14:03
PROVIDERS: PCP Internal Medicine; Visit Provider Internal Medicine
DX: E11.9 Type 2 diabetes mellitus without complications (principal)

== ENCOUNTER → 2025-01-05 14:02 | Outpatient (BNVA) | payer OTHER, SELFPAY | PROVIDERS: PCP Internal Medicine; Visit Provider Internal Medicine | DX: E11.9 Type 2 diabetes mellitus without complications (principal); I10 Essential (primary) hypertension; M81.0 Age-related osteoporosis without current pathological fracture; L40.9 Psoriasis, unspecified | CPT/HCPCS: 83036; 99212 ==

== ENCOUNTER 2025-03-03 13:43 | Outpatient (AMB) | payer OTHER, SELFPAY ==
--- NOTE | 2025-03-03 13:57 | A.OFFPC_ITS ---
Vital Signs 03/03/25 13:58 Height 5 ft 2 in Weight 157 lb 2 oz BMI 28.7 BP 130/78 Blood Pressure Location Lt brachial Position Sitting Pulse 54 Pulse Source Pulse Oximeter Temp 97.3 F Temp Source Temporal Artery Scan Pulse Oximetry (%) 98 Oxygen Delivery Method Room Air Intake Visit Reasons: DM - A1C needed - see comments Intake Note: Patient is here to follow up on DM. Scientific Recruiter Required: Yes Scientific Recruiter Language: Driver License Reviewing Officer Name: Pia [id number] Information Interpreted: non-clinical & clinical Deputy Register Of Deeds: Not Required per policy Accompanied by: Self / Same As Patient Allergies losartan Allergy (Intermediate, Verified 03/09/25 10:17) increase potassium Medication List - Last Reconciled 03/09/25 by Van Kim MD adalimumab (Humira(CF) Pen) mg subcut Q2W amlodipine 10 mg PO DAILY blood sugar diagnostic (FreeStyle Lite Strips) four time a day cholecalciferol (vitamin D3) 50 mcg PO DAILY clobetasol 0.05% 1 appl topical BEDTIME dulaglutide (Trulicity) 3 mg subcut QWEEK flash glucose scanning reader (FreeStyle Jaylon 14 Day Orient) As directed flash glucose sensor (FreeStyle Jaylon 14 Day Sensor kit) four times a day folic acid 1 mg PO DAILY hydrocortisone 2.5% 1 appl topical BID PRN insulin degludec (Tresiba FlexTouch U-200 insulin) 40 units subcut BEDTIME insulin NPH and regular human 100 unit/mL (70-30) (Novolin 70-30 FlexPen U-100 Insulin) 44 units subcut QAM ketoconazole 2% 1 appl topical 2XW melatonin 3 mg PO BEDTIME PRN meloxicam 15 mg PO DAILY metformin 1,000 mg PO BID methotrexate sodium 10 mg PO QWEEK pen needle, diabetic (BD Ultra-Fine Mini Pen Needle) As directed prednisone 5 mg PO DAILY Tobacco use date assessed: 03/03/25 Dental Screening Dental Screen Date: 03/25/24 HPI HPI Comments History of Present Illness Details History of Present Illness - The patient is a 54-year-old female pr esenting for management of chronic conditions including pain in her legs and hands secondary to arthritis and osteoporosis. - She reports persistent pain in her leg s and hands due to arthritis and osteoporosis. - She is scheduled to see a rheumatologi st on Friday. - She receives Humira injections every and occasionally receives injections for severe knee pain from her counterintelligence analyst. - For her diabetes, she is on Trulicity and Tresiba 40 mg, in addition to metformin, and reports managing her condition. - She reports having psoriasis that pres ents with itching and sores, which are alleviated by a specific cream. - She experiences insomnia and has tried 10 mg of a prescribed medication, but it has not been effective, as she often wakes up at 3 a.m. or stays awake until 6 a.m. - She has never had a colonoscopy, despi te a family history of from colon cancer, and wishes to be screened. - A referral was sent last year, but she did not connect with the car shifter. Social History - The patient lives in [place] in he r son's house. - She receives assistance from a [facility] er. - She uses a cane for ambulation. - She reports a family history of from colon cancer. Results [facility] Medical History Rheumatoid arthritis Seborrheic dermatitis Essential hypertension Screening for hyperlipidemia COVID-19 virus infection (~01/2021) Surgical History History of colonoscopy History of tubal ligation History of hand surgery Social History Housing: House Alcohol intake: never Patient Tobacco Use Status: Never used Tobacco e-Cigarette/Vaping Use: Never Used Second Hand Smoke Exposure: No service: No Current occupational status: disabled Current occupational exposures/hazards: No Cognitive needs: Yes (wheelchair, cane) Hearing needs: No Vision needs: No Questionnaire Thrive Questionnaire Date Thrive assessed: 01/05/25 I am a: Patient What is your living situation today?: I have a steady place to live Within the past 12 months, did the food you bought not last and you didn't have the money to get more?: Never true Within the past 12 months, did you worry whether your food would run out before you got money to buy more?: Never true Do you have trouble paying for medicines?: No Do you have trouble getting transportation to medical appointments?: No Do you have trouble paying your heating and electricity bill?: No Do you have trouble taking care of your child, family member or friend?: No Do you have trouble with day-to-day activities such as bathing, preparing meals, shopping, managing finances, etc.?: No Are you currently unemployed and looking for a job?: Yes Are you interested in more education?: No Please select the resources that you would like help with: None Currently or been in a relationship where the following occur: No concerns reported THRIVE Score: 0 PRIMO-7 AMB Questionnaire PRIMO-7 Date PRIMO - 7 assessed: 03/25/24 Source: Developed by Drs. German Núñez, Jeaneth Grimes, Nato Mckenzie and colleagues, with an educational becky from [employer]. Review of Systems Narrative Review of Systems - Musculoskeletal: Reports persistent pain in legs and hands. - Integumentary: Reports itching and sores related to psoriasis. - Neurological/Psychiatric: Reports insomnia. Physical exam (Primary Care) Vital Signs: Last Vital Signs Temp 97.3 F 03/03/25 13:58 Pulse 54 03/03/25 13:58 BP 130/78 03/03/25 13:58 Pulse Ox 98 03/03/25 13:58 Oxygen Delivery Method Room Air 03/03/25 13:58 BMI result Body Mass Index 28.7 Tobacco/Smoking Status: Tobacco use Status Tobacco use date assessed 03/03/25 03/03/25 14:05 Patient Tobacco Use Status Never used Tobacco 03/03/25 14:05 e-Cigarette/Vaping Use Never Used 03/03/25 14:05 Thrive Assessment: Date of Thrive Assessment Date Thrive assessed 01/05/25 03/03/25 14:05 Currently or been in a relationship where the following occur: No concerns reported Narrative Physical Exam General: Appearance normal, both eyes and all related structures Nutritional Appearance: Well nourished Orientation/consciousness: Patient oriented x3 Limitations: Uses a cane for mobility Head: Normal to inspection Neck: Normal visual inspection Chest: Normal palpation of entire chest wall Respiratory: Normal respiratory effort Neurology: Patient oriented x3 Coding Level of Care Code Est Pt Level 4 (17963) Add On Problem Visit Only Diagnoses Diabetes type 2, controlled E11.9 Assessment & Plan Assessment & Plan (1) Diabetes type 2, controlled: Code(s): E11.9 - Type 2 diabetes mellitus without complications Category: Medical Plan Plan - A referral will be sent for the patient to see a car shifter for a colon cancer screening, as this is the second referral attempt. - The patient has been advised to call back if she does not hear from the gastroenterology office within two weeks. - A prescription for a cream will be sent to manage her psoriasis. - No new lab work was ordered, as it is managed by her other specialists. - Patient's arthritis is being managed by a counterintelligence analyst, whom she will see on Friday. - Refills will be provided as needed. Discussion Notes I have resent a referral for the patient to a car shifter for a colonoscopy, given her family history of colon cancer. I advised her to contact our office if she does not receive a call from the specialist within two weeks, as a previous referral did not result in an appointment. I will also send a prescription for a cream to help with her psoriasis symptoms. Patient Instructions - A referral has been made for you to see a car shifter for a colon cancer screening. Please call our office if you do not hear from their office within two weeks. - A prescription for a cream to treat your psoriasis will be sent to your pharmacy. - Continue to follow up with your counterintelligence analyst for your arthritis, as scheduled. Orders: Referrals Gastroenterology Referral Z12.11 - Encounter for screening for malignant neoplasm of colon Medications: New hydrocortisone 2.5% 1 appl topical BID PRN 20 grams 0RF skin irritation
[2025-03-03 13:58] VITALS: BP 130/78; PULSE 54; TEMP 36.3; O2SAT 98; BMI 28.7
--- OUTSIDE RECORDS SUMMARY | 2025-03-03 21:02 | XMS_ITS | Clinical Summary ---
Author Organization [employer] [facility] ity Address [address] [place] [address] Care Team Providers Care Histologic Technician Name Role Phone Veronica Montana MD Primary [...] Years Used Date Smoking Tobacco: Former Cigarettes 0 Q uit: 05/05/2014 Smokeless Tobacco: Never Alcohol Use Standard Drinks/Week Comments No 0 (1 standard drink = 0.6 oz pur e alcohol) Comments Unknown Sex and Gender Information Value Date Recorded Sex Assigned at Not on file Legal Sex Female 6:48 PM EST Gender Identity Not on file Sexual Orientation Not on file Last Filed Vital Signs Vital Sign Reading [...] Depression Screening 03/24/2024 COVID-19 Vaccine (1 - 2024-2 6 season) 2024 Influenza Vaccine (#1) 2024 DTaP,Tdap,and [...] Procedure Name Priority Date/Time Associated Diagnosis Comments [facility] SCREENING DIGITAL Routine 05/29/2018 3:51 PM EST Encounter for screening mammogram for malignant neoplasm of breast from Last 3 Months or Most Recently Relevant to Health Maintenance Results * HOME SCREENING DIGITAL (05/29/2018 3:51 PM EST) Anatomical Region Laterality Modality Mammography 05/29/2018 1:38 PM EST Narrative 05/29/2018 3:51 PM EST [facility] Diagnostic Imaging Department [address] [place] [address] Patient: LOIS MANRIQUE Chely /Age/Sex: 1970 - 48 - F Unit#: [id number] Location/Status: SPDIMA/[facility] CLI Mnemonic/Ordering Site: [facility] Ordering Physician: VERONICA MONTANA MD Home Screening Digital - 05/29/18 - 1423 History: Bilateral breast cancer screening. Technique: Digital mammography. Conventional CC and MLO projections with tomosynthesis MLO views and computer aided detection. Comparison: [facility] 05/21/2017. Findings: Breast tissue consists of fatty and fibroglandular elements (category b density) bilaterally. There is no suspicious group of microcalcifications, mass, architectural distortion or suspicious change in breast tissue density. Impression: No evidence of malignancy. BIRADS category 1; negative study, 3341F 05948, [id number] Note: Patient information entered into a reminder system with a target due date for the next mammogram: CPT II 7025F Dictating Physician: GANESH PIPER MD Electronically Signed by: GANESH PIPER MD Dic Date/Time: 05/29/181550 Sign date/Time: 05/29/181550 Procedure Note Ganesh Piper MD - 03/13/2022 [facility] Diagnostic Imaging Department [address] [place] [address] Patient: KAROLINE MACDONALDLOIS Andersen./Age/Sex: 1970 - 48 -F Unit#: [id number] Location/Status: SPDIMAM/REG CLI Mnemonic/Ordering Site: [facility] Ordering Physician: VERONICA MONTANA MD Home Screening Digital - 05/29/18 - 142 History: Bilateral breast cancer screening. Technique: Digital mammography. Conventional CC and MLO projectionswith tomosynthesis MLO views and computer aided detection. Comparison: [facility] 05/21/2017. Findings: Breast tissue consists of fatty and fibroglandular elements (category b density) bilaterally. There is no suspicious group of microcalcifications, mass, architectural distortion or suspicious changein breast tissue density. Impression: No evidence of malignancy. BIRADS category 1; negative study, 3341F 83817, [id number] Note: Patient information entered into a reminder system with a target duedate for the next mammogram: CPT II 7025F Dictating Physician: GANESH PIPER MD Electronically Signed by: GANESH PIPER MD Dic Date/Time: 05/29/181550 Sign date/Time: 05/29/181550 us Veronica Montana MD IMG BI PROCEDURES Final Resu lt from Last 3 Months or Most Recently Relevant to Health Maintenance Care Teams Histologic Technician Relationship Specialty Start Date End Date Veronica Montana MD PCP - General Internal Medicine 05/01/17
== END 2025-03-03 15:17 | disposition home or self-care (01) ==
LOC: HO.HMCH 13:45
PROVIDERS: PCP Internal Medicine; Visit Provider Internal Medicine
DX: E11.9 Type 2 diabetes mellitus without complications (principal)

== ENCOUNTER → 2025-03-03 13:43 | Outpatient (BNVA) | payer OTHER, SELFPAY | PROVIDERS: PCP Internal Medicine; Visit Provider Internal Medicine | DX: E11.9 Type 2 diabetes mellitus without complications (principal); L40.9 Psoriasis, unspecified | CPT/HCPCS: 99212 ==